=== PATIENT | female | born 2000 | race Two or more races ===

== ENCOUNTER 2022-11-26 03:52 | Emergency (ER) | payer SELFPAY ==
[~2022-11-26] VITALS: Ht 165.1 cm; Wt 56.2 kg
[2022-11-26 04:07] VITALS: BP 126/74; TEMP 98.7; O2SAT 97
== END 2022-11-26 04:57 | disposition home or self-care (01) ==
LOC: ER 03:54
DX: F10.10 Alcohol abuse, uncomplicated (principal); E11.9 Type 2 diabetes mellitus without complications; Y90.9 Presence of alcohol in blood, level not specified
CPT/HCPCS: 82962-TC